=== PATIENT | male | born 1990 | race Caucasian/White ===

== ENCOUNTER 2019-06-14 23:06 | Emergency (ER) | payer OTHER ==
[~2019-06-14] VITALS: Ht 188 cm; Wt 73.9 kg
--- NOTE | 2019-06-14 23:17 | NUR ---
ED Nurse Note: Pt ambulated to ED from home c/o 8/ pain in L foot, 4th and 5th toe. Pt fell 2 weeks ago while hiking and it's been hurting since. Skin is intact, no deformity noticed. VSS
[2019-06-15] MEDS ORDERED: IBUPROFEN600 MG ORAL (00:15)
[2019-06-15 00:30] VITALS: BP 124/70
--- NOTE | 2019-06-15 00:30 | NUR ---
ER DISCHARGE NOTE: Patient is cleared to be discharged per ERMD, pt is aox4, on room air, with stable vital signs. pt was given dc and prescription instructions, pt was able to verbalize understanding, pt id band removed. pt is able to ambulate with steady gait. pt took all belongings.
--- NOTE | 2019-06-15 10:53 | Diagnostic Imaging Report ---
Indication: Foot pain Comparison: None Findings: 3 views of the left foot were obtained. No acute fractures, malalignment, erosions or periostitis are identified. Soft tissues are unremarkable. Impression: No acute findings
--- NOTE | 2019-06-17 21:59 | Emergency Room Report ---
History of Present Illness General Chief Complaint: Lower Extremity Injury Source: Patient Present Illness HPI Patient is 28-year-old male presented after increased foot swelling. Patient had recently had injury where he was jogging and subsequently inverted his foot. He reports having increased pain and swelling to the metatarsal area. He had noticed gradual onset of the symptoms and had been having some persistent mild pain. Pain was fairly localized. He denies any recent fevers. He denies any other locations of pain or discomfort. He had been able to ambulate. Injury occurred several days prior to arrival. Allergies: Coded Allergies: No Known Allergies (Unverified , 06/14/19) Patient History Past Medical History: see triage record Reviewed Nursing Documentation: PMH: Agreed; PSxH: Agreed Nursing Documentation-PMH Past Medical History: No Stated History Review of Systems All Other Systems: negative except mentioned in HPI Physical Exam Vital Signs Date Time Temp Pulse Resp B/P (MAP) Pulse Ox O2 Delivery O2 Flow Rate FiO2 06/14/19 23:11 98.4 62 18 124/70 (88) 98 Room Air General Appearance: well appearing, no apparent distress, alert, GCS 15 Head: normocephalic, atraumatic ENT: hearing grossly normal, normal voice Neck: full range of motion, supple Respiratory: no respiratory distress, speaking full sentences Gastrointestinal: normal inspection Musculoskeletal: no calf tenderness, swelling - left foot, tenderness to metatarsal head, no erythema Neurologic: normal inspection, alert, oriented x3, responsive Psychiatric: mood/affect normal Skin: no rash Medical Decision Making Diagnostic Impression: Primary Impression: Sprain of foot, left ER Course Patient presented for foot pain. Differential diagnosis include was not limited to sprain, contusion, fracture, foreign body, cellulitis among others. X-ray imaging of the foot 3 views interpreted by me showed normal bony alignment without a fracture. Patient was given prescription for pain medications. Advised to follow-up with his primary care physician for recheck. He was advised to rest the area and to return if any worsening of condition. Last Vital Signs Date Time Temp Pulse Resp B/P (MAP) Pulse Ox O2 Delivery O2 Flow Rate FiO2 06/15/19 00:30 98.4 82 18 124/70 98 Room Air Status: improved Disposition: HOME, SELF-CARE Condition: Stable Scripts Ibuprofen* (MOTRIN*) 600 Mg Tablet 600 MG ORAL Q6H PRN for For Pain, #20 TAB 0 Refills Prov: Tim Alcaraz MD 06/15/19 Referrals: Bryan GRIER,REFERRING (PCP) Patient Instructions: Foot Sprain Tim Alcaraz MD Jun 17, 2019 21:59
== END 2019-06-15 00:30 | disposition home or self-care (01) ==
LOC: EMR 23:29
DX: S93.602A Unspecified sprain of left foot, initial encounter (principal); Y93.02 Activity, running; Y92.9 Unspecified place or not applicable
CPT/HCPCS: 99282